=== PATIENT | female | born 1975 | race American Indian/Alaskan Native ===

== ENCOUNTER 2018-04-14 18:42 | Emergency (ER) | payer MEDICAID ==
[2018-04-14 18:42] VITALS: BMI 42.9
[2018-04-14 18:53] VITALS: BP 152/87; PULSE 101; TEMP 98.6; O2SAT 100
[2018-04-14 19:36] LABS: HCG,QUALITATIVE URINE NEGATIVE (NEGATIVE)
[2018-04-14 19:43] LABS: SQUAMOUS EPITHIAL 7 /hpf (0-5); URINE BACTERIA MOD (<OCC); URINE BILIRUBIN NEGATIVE (NEGATIVE); URINE BLOOD 3+ (NEGATIVE); URINE CLARITY Hazy (Clear); URINE COLOR Yellow (YELLOW); URINE GLUCOSE (UA) NORMAL (Normal); URINE LEUKOCYTE ESTERASE NEG Leu/uL (Negative); URINE PROTEIN NEGATIVE (NEGATIVE); URINE UROBILINOGEN NORMAL mg/dL (0.2-1.0)
--- NOTE | 2018-04-14 19:53 | C.PDOC ---
History Of Present Illness 42 yo female comes in for evaluation of left upper arm pain, midback and left thigh pain gradually developed since yesterday after sustained mechanical fall. Pt reports, slipped in bathroom and fell down in tub, landed onto left side. Pt sts, was fine after the fall, today woke up in pain. Pt sts, took Tramadol at home for pain with mod improvement in pain, ran out of medication. Otherwise, pt denies head injury, LOC, syncope, headache, dizziness, visual changes, focal deficits, neck pain, chest pain, abd. pain, N/V, denies obvious deformity, weakness, sensory or vascular deficits to B/L UEs and lEs. Time Seen by Provider: 04/14/18 19:05 Chief Complaint (Nursing): Upper Extremity Problem/Injury History Per: Patient Past Medical History Reviewed: Historical Data, Nursing Documentation, Vital Signs Vital Signs: Last Vital Signs Temp 98.6 F 04/14/18 18:50 Pulse 101 H 04/14/18 18:50 Resp 18 04/14/18 18:50 BP 152/87 H 04/14/18 18:50 Pulse Ox 100 04/14/18 18:50 - Medical History PMH: Asthma, Malignancy (breast) Denies: Depression Surgical History: Cholecystectomy Family History: States: Unknown Family Hx - Social History Hx Tobacco Use: No Hx Alcohol Use: No Hx Substance Use: No - Immunization History Hx Tetanus Toxoid Vaccination: No Hx Influenza Vaccination: No Hx Pneumococcal Vaccination: No Review Of Systems Except As Marked, All Systems Reviewed And Found Negative. Constitutional: Negative for: Fever, Chills Eyes: Negative for: Vision Change ENT: Negative for: Ear Discharge, Nose Discharge, Mouth Swelling Cardiovascular: Negative for: Chest Pain, Palpitations Respiratory: Negative for: Cough, Shortness of Breath Gastrointestinal: Negative for: Nausea, Vomiting, Abdominal Pain, Diarrhea Genitourinary: Negative for: Dysuria, Frequency, Incontinence Musculoskeletal: Positive for: Shoulder Pain, Back Pain, Leg Pain Skin: Negative for: Bruising Neurological: Negative for: Weakness, Numbness, Altered Mental Status, Headache, Dizziness Physical Exam - Physical Exam Appears: Well, Non-toxic, No Acute Distress Skin: Normal Color, Warm, Dry, No Rash, No Ecchymosis Head: Atraumatic, Normacephalic Eye(s): bilateral: PERRL Nose: No Deformity, No Tenderness Oral Mucosa: Moist Tongue: Normal Appearing Lips: Normal Appearing Neck: Normal ROM, No Midline Cervical Tenderness, No Paracervical Tenderness, No Step Off Deformity, Supple Chest: Symmetrical, No Deformity, No Tenderness Gastrointestinal/Abdominal: Soft, No Tenderness, No Distention, No Guarding Back: No CVA Tenderness, No Vertebral Tenderness, Paraspinal Tenderness (mild Left>right lumbar) Extremity: Normal ROM (FAROM of B/L UEs and LEs), Tenderness (mild over Left humerus and left femur. No palpable deformity, no ecchymoses. No edema.), No Deformity, No Swelling Neurological/Psych: Oriented x3, Normal Speech, Normal Motor, Normal Sensation, Normal Reflexes Gait: Steady ED Course And Treatment O2 Sat by Pulse Oximetry: 100 Pulse Ox Interpretation: Normal Progress Note: Pt was offered imaging review at present time, reports " I doubt anything is broken". On re-eval, pt is afebrile, hemodynamically stable. Ambulatory in ED with stable gait. Head: AT/NC. ENT: no acute findings. Neck: Supple, (-)midline tenderness. . Abd: Soft, non-tender. FAROM of B/L UEs and LEs, Neurologically intact.UA review (+) RBC c/w next onset of menstrual period. Pt advised , ref. to f/u with Ortho in 2-3 days for re-eval. Stable for discharge now. Disposition Counseled Patient/Family Regarding: Studies Performed, Diagnosis, Need For Followup, Rx Given - Disposition Referrals: Jhoan Vale MD [Medical Doctor] - Disposition: HOME/ ROUTINE Disposition Time: 19:50 Condition: STABLE Additional Instructions: Avoid physical activity for 1 week take pain medication as need Follow up with [facility] 2-3 days for re-evaluation. return to Ed if any worsening or new changes. Prescriptions: Methocarbamol [Robaxin] 500 mg PO TID #14 tab traMADol [Ultram] 50 mg PO TID #7 tab Instructions: Shoulder Sprain, Lumbar Muscle Strain (DC) Forms: Around Knowledge (Hebrew) - Clinical Impression Clinical Impression: Lumbar strain, Shoulder strain
[2018-04-14 20:09] VITALS: RESP 20
== END 2018-04-14 20:08 | disposition home or self-care (01) ==
LOC: C.ER 18:42
DX: S39.012A Strain of muscle, fascia and tendon of lower back, initial encounter (principal); S46.912A Strain of unspecified muscle, fascia and tendon at shoulder and upper arm level, left arm, initial encounter; W18.2XXA Fall in (into) shower or empty bathtub, initial encounter; Y92.002 Bathroom of unspecified non-institutional (private) residence as the place of occurrence of the external cause